=== PATIENT | female | born 1980 | race African-American/Black ===

== ENCOUNTER 2018-06-07 14:53 | Emergency (ER) | payer SELFPAY ==
[2018-06-07 15:00] VITALS: BP 167/82
--- NOTE | 2018-06-07 15:43 | ER Document Report ---
ED General - General Chief Complaint: Headache Stated Complaint: HEADACHE Time Seen by Provider: 06/07/18 15:33 Primary Care Provider: [facility] [Provider Group] - Follow up in 3-5 days LENORE CAMPA MD [COMMUNITY BASED STAFF] - Follow up in 3-5 days Notes: Patient is a 38 year-old female that presents to the emergency department for chief complaint of left-sided tooth pain and headache. Patient reports having a left-sided toothache, and her left upper mouth, over the past week, and has had associated headache on the left side of her head since the tooth pain started. She has had associated nausea with this, but no vomiting. Denies any blurred vision or changes in her vision. She denies having any fevers, chills, night sweats, she does have pain with eating, currently rates her pain as a 5 out of 10 describes as a constant aching sensation on the left side of her face. Past Medical History: Denies chronic medical conditions Past Surgical History: Denies recent or pertinent surgical history Social History: Admits to smoking cigarettes, denies alcohol or illicit drug use. Family History: Reviewed and noncontributory for presenting illness Allergies: Reviewed, see documented allergy list. REVIEW OF SYSTEMS: Other than noted above, the 12 point review of systems was reviewed with the patient and were negative, all pertinent findings are included in the HPI. PHYSICAL EXAMINATION: Vital signs reviewed, nursing noted reviewed. GENERAL: Well-appearing, well-nourished and in no acute distress. HEAD: Atraumatic, normocephalic. EYES: Eyes appear normal, extraocular movements intact, sclera anicteric, conjunctiva are normal. ENT: nares patent, oropharynx clear without exudates. Moist mucous membranes. Some dental caries noted, but there is a fractured tooth, tooth #15, fracture at the root, with surrounding erythema, but no discrete abscess noted adjacent to the tooth there is tenderness to palpation with a tongue blade. There is no tenderness to palpation over the frontal or maxillary sinuses. NECK: Normal range of motion, supple without lymphadenopathy LUNGS: Breath sounds clear to auscultation bilaterally and equal. No wheezes rales or rhonchi. HEART: Regular rate and rhythm without murmurs ABDOMEN: Soft, nontender, normoactive bowel sounds. No rebound, guarding, or rigidity. No masses appreciated. EXTREMITIES: Nontender, good range of motion, no pitting or edema. NEUROLOGICAL: No focal neurological deficits. Moves all extremities spontaneously Motor and sensory grossly intact on exam. PSYCH: Normal mood, normal affect. SKIN: Warm, Dry, normal turgor, no rashes or lesions noted on exposed skin TRAVEL OUTSIDE OF THE [place] IN LAST 30 DAYS: No - Related Data Allergies/Adverse Reactions: No Known Allergies Allergy (Unverified 06/07/18 15:34) Past Medical History - Social History Smoking Status: Current Some Day Smoker Chew tobacco use (# tins/day): No Frequency of alcohol use: None Drug Abuse: None Family History: Reviewed & Not Pertinent Patient has suicidal ideation: No Patient has homicidal ideation: No - Past Medical History Cardiac Medical History: Reports: Hx Hypertension - untreated Renal/ Medical History: Denies: Hx Peritoneal Dialysis Physical Exam - Vital signs Vitals: Temp Pulse Resp BP Pulse Ox 97.9 F 96 18 167/82 H 98 06/07/18 14:59 06/07/18 14:59 06/07/18 14:59 06/07/18 14:59 06/07/18 14:59 Course - Re-evaluation Re-evalutation: Patient seen and examined vital signs reviewed. Patient was evaluated and treated as appropriate for the patient's presenting symptoms and complaint, with consideration of any critical or life threatening conditions that may be associated with their obtained history and exam as noted above. Evaluation was most consistent with dental infection, leading to headache, will prescribe the patient naproxen for pain, give her penicillin for 7 days, and Fioricet to help with her headache for nausea and advised to follow-up with a dentist. Patient is given a list of several dentist in the area, to ultimately follow-up with which she was agreeable to. Patient's presenting headaches seem to be most associated with the dental infection, she was not demonstrating signs of dental abscess, or deep infection or sinusitis associated, therefore I feel the patient can be treated as an outpatient follow-up with dentistry Plan of care was discussed with the patient at this point, after careful consideration I feel that that patient can be discharged from the emergency department, the patient was educated treatments and reasons to return to the emergency department based on their presumed diagnosis as noted above, they were advised to followup with a primary care physician in 2-3 days. Patient was agreeable to plan of care. *Note is created using voice recognition software and may contain spelling, syntax or grammatical errors. - Vital Signs Vital signs: Temp Pulse Resp BP Pulse Ox 97.9 F 96 18 167/82 H 98 06/07/18 14:59 06/07/18 14:59 06/07/18 14:59 06/07/18 14:59 06/07/18 14:59 Discharge - Discharge Clinical Impression: Dental infection Headache Qualifiers: Headache type: unspecified Headache chronicity pattern: unspecified pattern Intractability: not intractable Qualified Code(s): R51 - Headache Condition: Good Disposition: HOME, SELF-CARE Instructions: Dental Infection or Abscess ([facility]), Headache ([facility]) Additional Instructions: Please follow-up with the dental clinic several are listed below Below is a list of dental clinics in the area. [facility] [address] [place], [place] [phone] [facility] [address] [place] [address] [facility] [address] [facility] [address] [facility] ([facility]) [facility] [address] [email or web address] [address] [place] [address] Wednesday- 8:00am to 5:00 pm Will see patients from other [facility]. Charges based on income and family size and accepts Medicare, Medicaid, and Insurances Will pull molars [facility] [address] Hours of Operation 8:00 am - 4:30 pm weekdays The following dental offices accept Medicaid: [facility] [address]. [address] Dr[address] Nicholson Dr. Irvin Dr. Smith Sanjay Graf L[place], and [facility] Dr. Morrison ([place]) Dr. Kenney ([place]) [facility] Drs. Denson and Jordi ([place]) Dr. Pryor ([place]) [facility] Dr. Holbrook ([place]) Drs. Burrell and ([place]) Medicaid Care Line Prescriptions: Butalb/Acetaminophen/Caffeine [Fioricet (50-325-40 mg) Tablet] 1 tab PO Q6H PRN #15 tab PRN Reason: HEADACHE Naproxen [Naprosyn] 500 mg PO BID PRN #30 tablet PRN Reason: TOOTH PAIN Penicillin V Potassium [Penicillin Vk 500 mg Tablet] 500 mg PO QID #28 tablet Referrals: LENORE CAMPA MD [COMMUNITY BASED STAFF] - Follow up in 3-5 days [facility] [Provider Group] - Follow up in 3-5 days
== END 2018-06-07 15:44 | disposition home or self-care (01) ==
LOC: ER 14:53
DX: R51 Headache (principal); K04.7 Periapical abscess without sinus; F17.210 Nicotine dependence, cigarettes, uncomplicated; I10 Essential (primary) hypertension
CPT/HCPCS: 99282